=== PATIENT | female | born 1975 | race Caucasian/White ===

== ENCOUNTER 2024-05-03 15:52 | Emergency (ER) | payer OTHER, SELFPAY ==
--- NOTE | ~2024-05-03 | XR_ITS ---
EXAM: XR abdomen/kub 1V DATE: 05/03/2024 16:45 HISTORY: extreme flank pain right . COMPARISON: None available. FINDINGS: Intact sternotomy wires. Cholecystectomy clips. Clear lung bases. Normal bowel gas pattern. Enlarged liver. No abnormal abdominal calcification. Properitoneal flank stripes are preserved. Pelv ic phleboliths. Mild degenerative changes in the spine and bilateral hips. IMPRESSION: No radiographic evidence of obstruction or ileus. Hepatomegaly. Reviewed, dictated and finalized at location K.
[2024-05-03 16:00] VITALS: BP 145/75; PULSE 58; RESP 20; TEMP 36.4; O2SAT 100
[2024-05-03 16:33] LABS: EDUAAPPEAR Cloudy; EDUABILI 1+; EDUABLOOD 2+; EDUACOLOR1 Yellow; EDUAGLUCOSE Negative; EDUAKETONE Negative; EDUALEUKO Negative; EDUANITRATE Negative; EDUAPH 5.5; EDUAPROTEIN 1+
--- NOTE | 2024-05-03 16:37 | ED.BACK ---
HPI - Back Pain/Injury General Chief Complaint: Back Pain/Injury Stated Complaint: Back pain Time Seen by Provider: 05/03/24 16:20 Source: patient, RN notes reviewed and old records reviewed Mode of arrival: ambulatory Limitations: no limitations History of Present Illness HPI Narrative: 49 year old female accompanied by family member presents to express care with complaints of acute pain to her right flank area that started today. Patient reports that she has not had any injury to her back or any recent heavy lifting,has had back pain before but normally is in middle back area. Patient reports no known fevers, chills or sweats,no nausea or vomiting. Patient reports no pain with urination or any burning, denies any vaginal discharge or concern for STD's. MD elicited complaint: other (right flank pain) Onset (ago): day(s) (this afternoon) Pain scale (0-10): 9 Location: right flank Work related injury: No Related Data Home Medications Medication Instructions Recorded Confirmed rosuvastatin 20 mg tablet 8 mg PO DAILY 05/03/24 05/03/24 Allergies Allergy/AdvReac Type Severity Reaction Status Date / Time coconut Allergy Unknown Verified 05/03/24 16:23 rylie Allergy Unknown Verified 05/03/24 16:23 neomycin Allergy Unknown Verified 05/03/24 16:23 Review of Systems Review of Systems: CONSTITUTIONAL: Denies fever, chills, or sweats. CARDIOVASCULAR: Denies chest pain, palpitations, or edema. RESPIRATORY: Denies cough or dyspnea. GASTROINTESTINAL: Denies abdominal pain, nausea, vomiting, or diarrhea. GENITOURINARY: Reports no dysuria, frequency, urgency. Reports night flank pain no visible hematuria. SKIN: Denies rash or itching. MUSCULOSKELETAL: Denies back pain or myalgia. Reports right CVA tenderness NEUROLOGIC: Denies headache All systems reviewed & are unremarkable except as noted in HPI and below PMFSH Past Medical History Medical History (Updated 05/04/24 @ 21:49 by Pamella Weeks NP) Hyperlipidemia Surgical History Surgical History (Updated 05/04/24 @ 21:49 by Pamella Weeks NP) History of cholecystectomy History of open heart surgery ASD repair Social History Social History (Updated 05/04/24 @ 21:48 by Pamella Weeks NP) Smoking status: Never smoker Alcohol intake: current Alcohol use details: rare Substance use type: does not use Gender identity (if verbalized by the patient): Female Comments At time of signature, agree with nursing past medical, surgical, social and family history. There is no relevant family history pertinent to the presenting complaint Exam Narrative: GENERAL: Well-appearing, well-nourished, and in acute distress related to right flank pain HEAD: Normocephalic, atraumatic. NECK: Supple.no lymphadenopathy CHEST: Clear to auscultation. No respiratory distress.SAO2 100% on room air HEART: Regular rate and rhythm. No murmur heard. Normal peripheral pulses. ABDOMEN: Soft, nontender, nondistended, normal active bowel sounds. Right CVA tenderness sharp EXTREMITIES: Normal range of motion. No edema. SKIN: Warm, dry, no rash. NEURO: No focal deficits. Alert and oriented x3. Course Course Emergency Course: Patient is aware of diagnosis, understands and agrees to treatment plan.? Anticipatory guidance given.? Patient agrees to follow-up as directed and is aware of reasons to seek care at the emergency department. Portions of this record may have been created with voice recognition software Level of Care: Express Care Visit Vital Signs Vital signs: Vital Signs Temperature 36.4 C L 05/03/24 16:00 Pulse Rate 58 L 05/03/24 16:00 Respiratory Rate 20 05/03/24 16:00 Blood Pressure 145/75 H 05/03/24 16:00 Pulse Oximetry 100 05/03/24 16:00 Oxygen Delivery Room Air 05/03/24 16:00 Temperature 36.4 C L 05/03/24 16:00 Pulse Rate 58 L 05/03/24 16:00 Respiratory Rate 20 05/03/24 16:00 Blood Pressure 145/75 H 05/03/24 16:00 P
== END 2024-05-03 17:10 | disposition short-term general hospital (02) ==
PROVIDERS: Emergency Provider Registered Nurse; PCP Internal Medicine
DX: R10.9 Unspecified abdominal pain (principal); E78.5 Hyperlipidemia, unspecified
CPT/HCPCS: 74018; 81003; 87086; 99213; G0463